=== PATIENT | male | born 1975 | race American Indian/Alaskan Native ===

== ENCOUNTER 2016-03-31 10:05 | Emergency (ER) | payer OTHER ==
[2016-03-31 11:11] VITALS: BP 128/84
--- NOTE | 2016-03-31 12:05 | Emergency Department Report ---
- General Chief Complaint: Wound/Laceration Stated Complaint: GAUZE REMOVAL Time Seen by Provider: 03/31/16 11:49 Source: patient Mode of arrival: Ambulatory Limitations: No Limitations - History of Present Illness Initial Comments: 40-year-old male comes in for repacking of this wound in the right lower jaw. Patient reports he was seen on 03/28/2016 and had an incision and draining. He also had packing as well. He does report some drainage she's been changing the bandage 3 times a day as reported by the provider he saw on March 28. He reports that the pain has improved a lot since the incision and draining. He denies any fever chills nausea vomiting. He does report that he has a dental appointment, neb just to be sure wasn't due to any of his teeth. Location: face - Related Data Previous Rx's Medication Instructions Recorded Last Taken Type traMADol [Ultram 50 MG tab] 50 mg PO Q6HR PRN #10 tablet 03/28/16 Unknown Rx Allergies Allergy/AdvReac Type Severity Reaction Status Date / Time clindamycin Allergy Rash Verified 03/27/16 23:26 ED Review of Systems ROS: Stated complaint: GAUZE REMOVAL Other details as noted in HPI Constitutional: no symptoms reported ED Past Medical Hx - Past Medical History Previous Medical History?: Yes Additional medical history: Boil - Surgical History Past Surgical History?: Yes Hx Appendectomy: Yes - Social History Smoking Status: Current Every Day Smoker Substance Use Type: Alcohol, Prescribed - Medications Home Medications: Home Medications Medication Instructions Recorded Confirmed Last Taken Type traMADol [Ultram 50 MG tab] 50 mg PO Q6HR PRN #10 tablet 03/28/16 Unknown Rx ED Physical Exam - General Limitations: No Limitations General appearance: alert, in no apparent distress - Head Head exam: Present: atraumatic - Neck Neck exam: Present: other (site is non-fluctuant nonerythematous nonerythematous mild discharge noted on the gauze.) ED Course Vital Signs 03/31/16 11:09 Temperature 98.4 F Pulse Rate 70 Respiratory 18 Rate Blood Pressure 128/84 O2 Sat by Pulse 100 Oximetry - I & D Right Lower Jaw I & D Procedure: betadine prep, sterile drapes applied, sterile dressing applied , gauze wick placed (replacement of the gauze wick.) Progress: Old was removed site was evaluated and a packing was placed with a sterile bandage ED Medical Decision Making - Medical Decision Making Discussed with patient that he'll need to return in 48 hours to do a repacking of his low right lower jaw. Patient verbalized understanding. Critical care attestation.: If time is entered above; I have spent that time in minutes in the direct care of this critically ill patient, excluding procedure time. ED Disposition Clinical Impression: Encounter for postoperative wound check Disposition: DISCHARGED TO HOME OR SELFCARE Is pt being admited?: No Does the pt Need Aspirin: No Condition: Stable Instructions: Wound Infection (ED) Additional Instructions: Patient is to return in 48 hours for a recheck of his wound. Referrals: PRIMARY CAREMD [Primary Care Provider] - 3-5 Days BRENDA ESCOBEDO MD [Staff Physician] - 3-5 Days Forms: Work/School Release Form(ED)
== END 2016-03-31 12:39 | disposition home or self-care (01) ==
LOC: ED 10:05
DX: Z48.01 Encounter for change or removal of surgical wound dressing (principal); F17.200 Nicotine dependence, unspecified, uncomplicated; Z88.1 Allergy status to other antibiotic agents
CPT/HCPCS: 99283

== ENCOUNTER 2016-04-03 12:39 | Emergency (ER) | payer OTHER ==
[2016-04-03 12:54] VITALS: BP 126/81
--- NOTE | 2016-04-03 13:32 | Emergency Department Report ---
ED Recheck HPI - General Chief Complaint: Skin/Abscess/Foreign Body Stated Complaint: GAUZE REMOVED OUT OF WOUND Time Seen by Provider: 04/03/16 13:17 Source: patient Mode of arrival: Ambulatory Limitations: No Limitations - History of Present Illness Initial Comments: Here for packing removal from R facial/neck abscess. Improved pain. No fevers. Not on antibiotics as was initially treated with I&D. Reports swelling persists in face. MD Complaint: wound re-check -: Gradual, days(s) Initial Visit For: cellulitis, abscess Returns Today for: wound recheck Symptoms Since Prior Visit: improved Context: planned re-check Associated Symptoms: none Treatments Prior to Arrival: dressings - Related Data Previous Rx's Medication Instructions Recorded Last Taken Type traMADol [Ultram 50 MG tab] 50 mg PO Q6HR PRN #10 tablet 03/28/16 Unknown Rx Sulfamethoxazole/Trimethoprim 1 each PO BID #20 tablet 04/03/16 Unknown Rx [Bactrim DS TAB] Allergies Allergy/AdvReac Type Severity Reaction Status Date / Time clindamycin Allergy Rash Verified 03/27/16 23:26 ED Review of Systems ROS: Stated complaint: GAUZE REMOVED OUT OF WOUND Other details as noted in HPI Comment: All other systems reviewed and negative Constitutional: denies: chills, fever Eyes: denies: eye pain, eye discharge, vision change ENT: denies: ear pain, throat pain Respiratory: denies: cough, shortness of breath, wheezing Cardiovascular: denies: chest pain, palpitations Endocrine: no symptoms reported Gastrointestinal: denies: abdominal pain, nausea, diarrhea Genitourinary: denies: urgency, dysuria Musculoskeletal: denies: back pain, joint swelling, arthralgia Skin: denies: rash, lesions Neurological: denies: headache, weakness, paresthesias Psychiatric: denies: anxiety, depression Hematological/Lymphatic: denies: easy bleeding, easy bruising ED Past Medical Hx - Past Medical History Additional medical history: Boil - Surgical History Hx Appendectomy: Yes - Social History Smoking Status: Current Every Day Smoker Substance Use Type: Alcohol - Medications Home Medications: Home Medications Medication Instructions Recorded Confirmed Last Taken Type traMADol [Ultram 50 MG tab] 50 mg PO Q6HR PRN #10 tablet 03/28/16 Unknown Rx Sulfamethoxazole/Trimethoprim 1 each PO BID #20 tablet 04/03/16 Unknown Rx [Bactrim DS TAB] ED Physical Exam - General Limitations: No Limitations General appearance: alert, in no apparent distress - Head Head exam: Present: atraumatic, normocephalic - Eye Eye exam: Present: normal appearance - ENT ENT exam: Present: mucous membranes moist - Neck Neck exam: Present: normal inspection - Respiratory Respiratory exam: Present: normal lung sounds bilaterally. Absent: respiratory distress - Cardiovascular Cardiovascular Exam: Present: regular rate, normal rhythm. Absent: systolic murmur, diastolic murmur, rubs, gallop - GI/Abdominal GI/Abdominal exam: Present: soft, normal bowel sounds - Rectal Rectal exam: Present: deferred - Extremities Exam Extremities exam: Present: normal inspection - Back Exam Back exam: Present: normal inspection - Neurological Exam Neurological exam: Present: alert, oriented X3 - Psychiatric Psychiatric exam: Present: normal affect, normal mood - Skin Skin exam: Present: warm, dry, intact, normal color, other (Packing removed from R submandibular area. There is induration noted superior to this. Mild cellulitis. ). Absent: rash ED Course Vital Signs 04/03/16 12:52 Temperature 98.3 F Pulse Rate 68 Respiratory 18 Rate Blood Pressure 126/81 O2 Sat by Pulse 100 Oximetry - Reevaluation(s) Reevaluation #1: 04/03/16 13:32 NAD, stable for d/c. ED Recheck MDM - Differential Diagnosis Wound Recheck, Cellultitis Recheck - Medical Decision Making Packing removed, slight drainage expressed. Pt 1 week s/p I&D with improvement of abscess itself but still swelling to surrounding area with mild erythema. Will place on antibiotics for localized cellulitis. Follow up/return precautions given. Critical care attestation.: If time is entered above; I have spent that time in minutes in the direct care of this critically ill patient, excluding procedure time. ED Disposition Clinical Impression: Encounter for postoperative wound check Disposition: DISCHARGED TO HOME OR SELFCARE Is pt being admited?: No Condition: Good Instructions: Abscess (ED) Prescriptions: Sulfamethoxazole/Trimethoprim [Bactrim DS TAB] 1 each PO BID #20 tablet Referrals: PRIMARY CARE, [Primary Care Provider] - 3-5 Days Time of Disposition: 13:37
== END 2016-04-03 13:46 | disposition home or self-care (01) ==
LOC: ED 12:39
DX: Z48.01 Encounter for change or removal of surgical wound dressing (principal); F17.200 Nicotine dependence, unspecified, uncomplicated; Z90.49 Acquired absence of other specified parts of digestive tract; Z88.1 Allergy status to other antibiotic agents

== ENCOUNTER 2018-11-02 09:21 | Emergency (ER) | payer SELFPAY ==
--- NOTE | 2018-11-02 09:52 | Emergency Department Report ---
ED Male HPI - General Chief complaint: Abdominal Pain Stated complaint: LOWER ABD PAIN Time Seen by Provider: 11/02/18 09:39 Source: patient Mode of arrival: Ambulatory Limitations: No Limitations - History of Present Illness Initial comments: Patient is a 42-year-old male who presents to the emergency room with complaints of dysuria and began a couple days ago. States he has associated small amount of white penile discharge. Patient states he has also had some lower abdominal pressure. He states he is sexually active and did not use protection and had a new partner. He states he only engages in vaginal intercourse. He denies any testicular edema, testicular pain, fever, nausea, vomiting, diarrhea, lesions or blisters on the penis. He states his STD history is gonorrhea and he received treatment at that time approximately 10 years ago. Denies any past medical history. states he gets a rash when he takes clindamycin. - Related Data Previous Rx's Medication Instructions Recorded Last Taken Type traMADol [Ultram 50 MG tab] 50 mg PO Q6HR PRN #10 tablet 03/28/16 Unknown Rx Sulfamethoxazole/Trimethoprim 1 each PO BID #20 tablet 04/03/16 Unknown Rx [Bactrim DS TAB] Allergies Allergy/AdvReac Type Severity Reaction Status Date / Time clindamycin Allergy Rash Verified 03/27/16 23:26 ED Review of Systems ROS: Stated complaint: LOWER ABD PAIN Other details as noted in HPI Comment: All other systems reviewed and negative ED Past Medical Hx - Past Medical History Previous Medical History?: Yes Additional medical history: Boil - Surgical History Past Surgical History?: Yes Hx Appendectomy: Yes - Social History Smoking Status: Current Every Day Smoker Substance Use Type: Alcohol - Medications Home Medications: Home Medications Medication Instructions Recorded Confirmed Last Taken Type traMADol [Ultram 50 MG tab] 50 mg PO Q6HR PRN #10 tablet 03/28/16 Unknown Rx Sulfamethoxazole/Trimethoprim 1 each PO BID #20 tablet 04/03/16 Unknown Rx [Bactrim DS TAB] ED Physical Exam - General Limitations: No Limitations General appearance: alert, in no apparent distress - Head Head exam: Present: atraumatic, normocephalic - Eye Eye exam: Present: normal appearance - ENT ENT exam: Present: mucous membranes moist - Respiratory Respiratory exam: Present: normal lung sounds bilaterally. Absent: respiratory distress, wheezes, rales, rhonchi, stridor, chest wall tenderness, accessory muscle use, decreased breath sounds, prolonged expiratory - Cardiovascular Cardiovascular Exam: Present: regular rate, normal rhythm, normal heart sounds. Absent: systolic murmur, diastolic murmur, rubs, gallop - GI/Abdominal GI/Abdominal exam: Present: soft, normal bowel sounds. Absent: distended, tenderness, guarding, rebound, rigid - exam: Present: other (pt deferred) - Neurological Exam Neurological exam: Present: alert, oriented X3 - Psychiatric Psychiatric exam: Present: normal affect, normal mood - Skin Skin exam: Present: warm, dry, intact ED Course Vital Signs 11/02/18 11/02/18 09:29 10:55 Temperature 98.3 F Pulse Rate 91 H 86 Respiratory 16 16 Rate Blood Pressure 136/92 Blood Pressure 134/90 [Left] O2 Sat by Pulse 99 99 Oximetry ED Medical Decision Making - Medical Decision Making Patient is a 42-year-old male who presents to the emergency room with complaints of dysuria and began a couple days ago. States he has associated small amount of white penile discharge. Patient states he has also had some lower abdominal pressure. He states he is sexually active and did not use protection and had a new partner. He states he only engages in vaginal intercourse. He denies any testicular edema, testicular pain, fever, nausea, vomiting, diarrhea, lesions or blisters on the penis. He states his STD history is gonorrhea and he received treatment at that time approximately 10 years ago. Denies any past medical history or allergies to medications. VSS. no abd tenderness on exam. UA with no acute process. G/C sent from urine. pt tx prophylactically with azithromycin and ceftriaxone. discussed with pt to check with medical records in approximately 1 week for results of G/C test. Advised patient to have all partners tested and treated as well. Discussed for further STD workup will need to be seen by the health department or primary care doctor. Given list of community resources. Advised to abstain from sexual intercourse for 10 days. follow up with a primary care doctor in the next 2-3 days. Return to the emergency room for any new or worsening symptoms. - Differential Diagnosis UTI, STD Critical care attestation.: If time is entered above; I have spent that time in minutes in the direct care o f this critically ill patient, excluding procedure time. ED Disposition Clinical Impression: Dysuria, Penile discharge, Suprapubic pressure Disposition: DC- TO HOME OR SELFCARE Is pt being admited?: No Does the pt Need Aspirin: No Condition: Stable Instructions: Sexually Transmitted Diseases (ED), Safe Sex (ED), Dysuria (ED) Additional Instructions: Check with medical records in approximately 1 week for results of test. Have all partners tested and treated as well. For further STD workup will need to be seen by the health department or primary care doctor. Given list of community resources. Abstain from sexual intercourse for 10 days. follow up with a primary care doctor in the next 2-3 days. Return to the emergency room for any new or worsening symptoms. Referrals: [facility] [Outside] - 2-3 Days [facility] [Outside] - 2-3 Days [facility] [Provider Group] - 2-3 Days [facility] [Outside] - 2-3 Days Time of Disposition: 10:31 Print Language: [id number]
[2018-11-02 10:19] LABS: Bilirubin,Urine NEG (Negative); Blood,Urine NEG (Negative); Color,Urine Yellow (Yellow); Mucus,Urine FEW /HPF; Protein,Urine <15 mg/dL mg/dL (Negative); RBC,Urine < 1.0 /HPF (0.0-6.0); Urobilinogen,Urine < 2.0 mg/dL (<2.0)
[2018-11-02] MEDS ORDERED: ZITHROMAX PO ONE (10:29)
[2018-11-02] MEDS ORDERED: XYLOCAINE 1% MPF 5 mL INFILTRATI ONE (10:29)
[2018-11-02] MEDS ORDERED: ROCEPHIN IM ONE (10:29)
[2018-11-02 10:56] VITALS: BP 134/90
== END 2018-11-02 10:55 | disposition home or self-care (01) ==
LOC: ED 09:21
DX: R30.0 Dysuria (principal); R36.9 Urethral discharge, unspecified; F17.200 Nicotine dependence, unspecified, uncomplicated; Z90.89 Acquired absence of other organs; Z88.1 Allergy status to other antibiotic agents
CPT/HCPCS: 81001; 87591; J0696; 96372